=== PATIENT | male | born 1925 | race Caucasian/White ===

== ENCOUNTER 2016-08-25 13:08 | Inpatient (IN) ==
--- NOTE | 2016-08-25 13:24 | Emergency Department Note ---
Disposition Clinical Impression: Cerebrovascular accident, Frail elderly, Diabetes, Abnormal EKG, Hypertension, Polycythemia, CAD (coronary artery disease) Disposition: Admitted As Inpatient Referrals: David Whipple DO [Primary Care Provider] - Forms: ED Satisfaction Letter General Adult HPI - General Chief complaint: ED Neuro Symptoms/Deficit Stated complaint: Neuro Symptoms Time Seen by Provider: 08/25/16 13:18 Source: patient, EMS Limitations: no limitations - History of Present Illness HPI Narrative: 89-year-old male diabetic running from home via EMS. There is concern for strokelike symptoms including left facial droop and left upper and left lower extremity weakness which started sometime this morning. The patient was able to eat breakfast, then he was somewhat sleepy, one of his female relatives January he was sleeping in his chair at 845, she came back about 11:30 and noticed that he was still tired, about noon she was able to define some significant neurologic changes, it is unclear exactly when this started. There is no history of fall or trauma. There is no history of chest pain shortness of breath or abdominal pain no vomiting or diarrhea no bleeding. The patient is not known to take blood thinners apart from aspirin. The patient has no history of fever or back pain. He is known to be diabetic. His blood sugar on arrival here was in the 220s, EMS was unable to check at home secondary to a malfunctioning machine. The family reports the patient had a remote heart valve replaced, he is reportedly on Digoxin There is no history of syncope, no fever or cough. There is no history of bowel or bladder dysfunction or seizure. The patient is unable to clearly define when he had weakness. He had a remote ischemic intracerebral event but had no major defects afterwards. Onset (ago): hour(s) Pain Scale: 0 - Related Data Home Medications Medication Instructions Recorded Confirmed Atenolol [Tenormin] 25 mg PO DAILY 08/25/16 08/25/16 Carvedilol [Coreg] 6.25 mg PO BIDWM 08/25/16 08/25/16 Clopidogrel [Plavix] 75 mg PO DAILY 08/25/16 08/25/16 Digoxin [Lanoxin] 0.125 mg PO DAILY 08/25/16 08/25/16 Furosemide [Lasix] 40 mg PO DAILY 08/25/16 08/25/16 Gemfibrozil [Lopid] 600 mg PO BIDWM 08/25/16 08/25/16 GlipiZIDE [Glucotrol] 5 mg PO DAILY 08/25/16 08/25/16 Metformin [Glucophage] 500 mg PO HS 08/25/16 08/25/16 Potassium Chloride [K-Tab ER] 20 meq PO DAILY 08/25/16 08/25/16 Simvastatin [Zocor] 20 mg PO HS 08/25/16 08/25/16 Allergies Allergy/AdvReac Type Severity Reaction Status Date / Time Penicillins [PCN] Allergy See Verified 08/25/16 14:05 Comments All systems ED: reviewed and negative except as stated. Past Medical History - Past Medical History Medical history: Reports: coronary artery disease, CVA, diabetes, hypertension, myocardial infarction, other Psychiatric history: Reports: no psych history - Social History Smoking Status: Former smoker Smokeless Tobacco Status: No Alcohol use: Reports: none Drug use: Reports: none Physical Exam - General Limitations: no limitations General appearance: alert, in no apparent distress - Head Head exam: atraumatic, normocephalic, normal inspection - Eye Eye exam: Present: normal appearance, PERRL, EOMI. Absent: scleral icterus, conjunctival injection, miosis, mydriasis - ENT ENT exam: normal exam, normal oropharynx, mucous membranes moist, TM's normal bilaterally, normal external ear exam - Neck Neck exam: Present: normal inspection, full ROM, trachea midline. Absent: tenderness - Chest Chest inspection: Present: symmetric chest wall rise. Absent: tenderness - Respiratory Respiratory exam: Present: normal lung sounds bilaterally. Absent: respiratory distress - Cardiovascular Cardiovascular exam: Present: normal rhythm, tachycardia - Abdominal Exam Abdominal exam: Present: soft, Non-Tender, normal bowel sounds. Absent: tenderness, distention, guarding, rebound, rigidity - Extremities Exam Extremities exam: Present: normal inspection, full ROM, normal capillary refill. Absent: tenderness, pedal edema, joint swelling, calf tenderness - Expanded Lower Extremity Exam Neurovascular/Tendon exam: Absent: pulse deficit, motor deficit, sensory deficit , tendon deficit, extremity cold to touch - Back Exam Back exam: Present: normal inspection, full ROM. Absent: tenderness, CVA tenderness (R), CVA tenderness (L), vertebral tenderness - Neurological Exam Neurological exam: Present: alert, oriented X3, motor sensory deficit (Left upper and left lower extremity weakness versus right.). Absent: CN II-XII intact (Left facial droop noted) - Psychiatric Psychiatric exam: Present: normal affect, normal mood - Skin Skin exam: Present: warm, dry, intact, normal color. Absent: rash, cyanosis, diaphoresis, erythema, pallor, mottled Course Vital Signs Temperature 97.7 F 08/25/16 13:10 Pulse Rate 123 08/25/16 13:10 Respiratory Rate 16 08/25/16 13:10 Blood Pressure 119/74 08/25/16 13:10 O2 Sat by Pulse Oximetry 98 08/25/16 13:10 Temperature 97.7 F 08/25/16 13:10 Pulse Rate 79 08/25/16 13:34 Respiratory Rate 16 08/25/16 13:34 Blood Pressure 194/102 08/25/16 13:34 O2 Sat by Pulse Oximetry 97 08/25/16 13:43 Oxygen Delivery Oxygen Delivery Room Air Medical Decision Making - MDM Narrative Medical decision making narrative: We called a stroke alert and spoke with the [facility] neurologists Dr. Billings, Who reported tPA would not be indicated at this time. The patient cele has CT changes at this point. Aspirin was ordered. [facility] would be willing to accept the patient. I have consulted with our neurologist Dr. Hansen, who would also feel comfortable keeping the patient here at [facility]. I consulted with Dr. Hart band sawyer who looked at the EKGs and reports there is no significant change. The patient not having chest pain. His troponin is negative. I reviewed the case with the patient and family, they have elected to stay at [facility] for care. The patient appears to be generally stable. The digoxin level is pending. Aspirin was ordered. I consulted with the hospitalist on-call Dr. Villagran who has accepted the patient to his care. He patient's blood pressure did rise in the ED, labetalol was ordered. - Lab Data Lab results reviewed: Yes I reviewed the patient's lab results. Result diagrams: 08/25/16 13:33 08/25/16 13:33 Lab Results 08/25/16 08/25/16 08/25/16 Range/Units 13:33 13:33 13:33 WBC 13.3 H (4.3-11.1) K/mcL RBC 6.44 H (4.19-5.50) M/mcL Hgb 19.3 H (12.9-16.9) g/dL Hct 55.0 H (37.5-50.1) % MCV 85.4 (83.0-100.0) fL MCH 30.0 (28.0-33.3) pg MCHC 35.1 (31.6-35.5) g/dL RDW 14.1 (11.5-14.5) % Plt Count 123 L (140-400) K/mcL MPV 10.4 (9.4-12.4) fL Immature Gran % 0.3 (0-4) % Seg Neutrophils % 80.3 % Lymphocytes % 12.6 % Monocytes % 5.8 % Eosinophils % 0.5 % Basophils % 0.5 % Neutrophils # 10.7 H (1.6-8.9) K/mcL Lymphocytes # 1.7 (0.6-4.6) K/mcL Monocytes # 0.8 (0.0-1.3) K/mcL Eosinophils # 0.1 (0.0-0.6) K/mcL Basophils # 0.1 (0.0-0.2) K/mcL PT 13.5 H (9.4-12.1) Seconds INR 1.2 APTT 35.8 (26.0-36.0) Seconds Sodium 135 L (136-145) mEq/L Potassium 3.7 (3.5-4.5) mEq/L Chloride 104 (98-109) mEq/L Carbon Dioxide 21 (19-29) mEq/L BUN 13 (8-26) mg/dL Creatinine 0.88 (0.72-1.25) mg/dL Est GFR ( Amer) > 60 (> 60) Est GFR (Non-Af Amer) > 60 (> 60) BUN/Creatinine Ratio 15 (6-26) Glucose 232 H (70-99) mg/dL Calculated Osmolality 288 (280-300) Calcium 9.0 (8.6-10.8) mg/dL Creatine Kinase 46 (30-200) Units/L Troponin I (0-0.03) ng/mL 08/25/16 Range/Units 13:33 WBC (4.3-11.1) K/mcL RBC (4.19-5.50) M/mcL Hgb (12.9-16.9) g/dL Hct (37.5-50.1) % MCV (83.0-100.0) fL MCH (28.0-33.3) pg MCHC (31.6-35.5) g/dL RDW (11.5-14.5) % Plt Count (140-400) K/mcL MPV (9.4-12.4) fL Immature Gran % (0-4) % Seg Neutrophils % % Lymphocytes % % Monocytes % % Eosinophils % % Basophils % % Neutrophils # (1.6-8.9) K/mcL Lymphocytes # (0.6-4.6) K/mcL Monocytes # (0.0-1.3) K/mcL Eosinophils # (0.0-0.6) K/mcL Basophils # (0.0-0.2) K/mcL PT (9.4-12.1) Seconds INR APTT (26.0-36.0) Seconds Sodium (136-145) mEq/L Potassium (3.5-4.5) mEq/L Chloride (98-109) mEq/L Carbon Dioxide (19-29) mEq/L BUN (8-26) mg/dL Creatinine (0.72-1.25) mg/dL Est GFR ( Amer) (> 60) Est GFR (Non-Af Amer) (> 60) BUN/Creatinine Ratio (6-26) Glucose (70-99) mg/dL Calculated Osmolality (280-300) Calcium (8.6-10.8) mg/dL Creatine Kinase (30-200) Units/L Troponin I 0.03 (0-0.03) ng/mL - Radiology Data Radiology results reviewed: Yes I reviewed the patient's radiology results.
[2016-08-25 13:42] LABS: Basophils # 0.1 K/mcL (0.0-0.2); Basophils % 0.5 %; Eosinophils # 0.1 K/mcL (0.0-0.6); Eosinophils % 0.5 %; Hemoglobin 19.3 g/dL (12.9-16.9); Immature Granulocytes % 0.3 % (0-4); Lymphocytes # 1.7 K/mcL (0.6-4.6); Lymphocytes % 12.6 %; Mean Corpuscular HGB Conc 35.1 g/dL (31.6-35.5); Mean Corpuscular Volume 85.4 fL (83.0-100.0); Mean Platelet Volume 10.4 fL (9.4-12.4); Monocytes # 0.8 K/mcL (0.0-1.3); Monocytes % 5.8 %; Neutrophils # 10.7 K/mcL (1.6-8.9); Platelet Count 123 K/mcL (140-400); Red Blood Count 6.44 M/mcL (4.19-5.50); Red Cell Distribution Width 14.1 % (11.5-14.5); Segmented Neutrophils % 80.3 %
[2016-08-25] MEDS ORDERED: Aspirin 325 MG TABLET PO ONE (13:46)
[2016-08-25 13:48] LABS: INR 1.2; Prothrombin Time 13.5 Seconds (9.4-12.1)
[2016-08-25 13:51] LABS: Activated Partial Thrombo Time 35.8 Seconds (26.0-36.0)
[2016-08-25 13:56] LABS: BUN/Creatinine Ratio 15 (6-26); Blood Urea Nitrogen 13 mg/dL (8-26); Carbon Dioxide 21 mEq/L (19-29); Chloride 104 mEq/L (98-109); Creatine Kinase 46 Units/L (30-200); Glucose 232 mg/dL (70-99); Osmolality,Calculated 288 (280-300); Potassium 3.7 mEq/L (3.5-4.5); Sodium 135 mEq/L (136-145); eGFR For African Americans > 60 (> 60); eGFR For Non-African Americans > 60 (> 60)
[2016-08-25] MEDS ORDERED: *HR* Labetalol 20 MG/4 ML SYRINGE IVP ONE (15:46)
[2016-08-25] MEDS ORDERED: Ondansetron 4 MG/2 ML VIAL IVP PRN (18:47)
[2016-08-25] MEDS ORDERED: Naloxone 0.4 MG/ML INJ IVP PRN (18:47)
[2016-08-25] MEDS ORDERED: *HR* Dextrose 50 % in Water (Syg) 50 ML SYRINGE IVP PRN (19:22)
[2016-08-25] MEDS ORDERED: Dextrose Gel 15 GM PO PRN ×2 (19:22)
[2016-08-25] MEDS ORDERED: D5% in Water 1,000 ML IV PRN (19:22)
--- NOTE | 2016-08-25 20:00 | Neurology - Consult Note ---
Date of Encounter: 08/26/16 Time of Encounter: 19:59 Assessment and Plan (1) Acute CVA (cerebrovascular accident) Current Visit: Yes Status: Acute OVerall speaking this patient is an 89 years old man who developed acute onset of mental status along with some slurred speech, and possible head and neck preference to the right side, with possible neglect to the left side, without significant focal weakness. Does concern for new onset of stroke may be involving cortical area due to presence of head preference and posturing. So does need full stroke work up including MRI of brain, carotid artery duplex and echocardiography with saline bubble. Telemetry for cardiac dysarrhythmia. Agree with aspirin 81mg and plavix 75mg daily. Continue statin therapy. PT/OT/speech and swallow evaluation. medical and supportive care History of Present Illness Chief complaint: stroke like symptoms HPI: Mr. Borrego is a 89 year old male with PMH Significant for CAD, HTN, polycythemia, DM who developed acute onset of stroke like symptoms this morning. It was reported that the patient developed some weakness, and slurred speech. Patient can not tell much about his current symptoms but recognizes that he is doing better at the time of this interview. Grandson later came in and provided the history. Son relates that the patient developed some changes in the morning and that he had a stroke about 3-4 years ago where he developed weakness to the right side. But then he tells me that it was initially thought to be a stroke but later found no signs of stroke. Patient is somewhat having some may be baseline cognitive and he tends to neglect the left side of body and has some right sided gaze and head preference But able to squeeze left hand real hard when told so Past Med Surg Social Fam HX - Past Medical History Medical history: coronary artery disease, CVA, diabetes, hypertension, myocardial infarction, other Psychiatric history: no psych history - Social History Smoking Status: Former smoker Smokeless Tobacco Status: No Alcohol use: none Drug use: none Medications and Allergies Atenolol [Tenormin] 25 mg PO DAILY 08/25/16 [History] Carvedilol [Coreg] 6.25 mg PO BIDWM 08/25/16 [History] Clopidogrel [Plavix] 75 mg PO DAILY 08/25/16 [History] Digoxin [Lanoxin] 0.125 mg PO DAILY 08/25/16 [History] Furosemide [Lasix] 40 mg PO DAILY 08/25/16 [History] Gemfibrozil [Lopid] 600 mg PO BIDWM 08/25/16 [History] GlipiZIDE [Glucotrol] 5 mg PO DAILY 08/25/16 [History] Metformin [Glucophage] 500 mg PO HS 08/25/16 [History] Potassium Chloride [K-Tab ER] 20 meq PO DAILY 08/25/16 [History] Simvastatin [Zocor] 20 mg PO HS 08/25/16 [History] Allergies Penicillins [PCN] Allergy (Verified 08/25/16 14:05) See Comments All Systems: A 10-system review of systems was performed and is negative for pertinent findings except as documented above in the HPI. Physical Examination - Vital Signs Vital Signs: Initial Vital Signs Temp Pulse Resp BP Pulse Ox 97.7 F 123 16 119/74 98 08/25/16 13:10 08/25/16 13:10 08/25/16 13:10 08/25/16 13:10 08/25/16 13:10 - Constitutional General appearance: comfortable (Denies significant discomforts. Does not seem to be in any acute distress) - Neurologic Sensorimotor examination: other (Difficult to assess due to mental status changes) Detailed motor examination: other (Seem to neglect left side but able to squeeze hand rather when told so. Upward drift to right arm noted. Able to lift legs off the bed bilaterally) Reflexes: Biceps: 1+, Triceps: 1+, Brachioradialis: 1+, Patella: 1+, Achilles: 1 + Mental Status Examination: awake, alert, oriented to person, follows commands appropriately, lethargic (Patient answers simple qeustions only and is drowsy but easily arousable. Turns head to the right side, but no significant gaze preference seen), opens eyes to voice, opens eyes to noxious stimulation, follows simple commands Cranial nerve examination: PERRL, EOMI, corneal reflexes brisk symmetrically, sensory to face intact, mastication intact, no facial asymmetry is present, gag reflex intact, tongue protrudes midline Results - Laboratory Findings CBC and BMP: 08/26/16 00:52 08/26/16 00:52 Abnormal lab findings: Abnormal lab results WBC 13.3 K/mcL (4.3-11.1) H 08/25/16 13:33 RBC 6.44 M/mcL (4.19-5.50) H 08/25/16 13:33 Hgb 19.3 g/dL (12.9-16.9) H 08/25/16 13:33 Hct 55.0 % (37.5-50.1) H 08/25/16 13:33 Plt Count 123 K/mcL (140-400) L 08/25/16 13:33 Neutrophils # 10.7 K/mcL (1.6-8.9) H 08/25/16 13:33 PT 13.5 Seconds (9.4-12.1) H 08/25/16 13:33 Sodium 135 mEq/L (136-145) L 08/25/16 13:33 Glucose 232 mg/dL (70-99) H 08/25/16 13:33 Digoxin < 0.3 ng/mL (0.8-2.0) L 08/25/16 13:33 Consult Discharge Plan - Plan Referrals: David Whipple DO [Primary Care Provider] -
--- NOTE | 2016-08-25 20:26 | Internal Med History&Physical ---
Date of Encounter: 08/25/16 Time of Encounter: 18:00 Assessment and Plan (1) Diabetes mellitus type 2, noninsulin dependent Current visit: Yes Status: Acute Insulin sliding scale. Continue his oral meds. (2) Hyperlipidemia Current visit: Yes Status: Acute Check lipid panel. Continue with gemfibrozil. I will stop the simvastatin and start atorvastatin instead. Qualifiers: Hyperlipidemia type: unspecified Qualified Code(s): E78.5 - Hyperlipidemia , unspecified (3) Essential hypertension Current visit: Yes Status: Acute He is on 2 beta blockers. I will continue with atenolol. Stop Coreg. (4) DVT prophylaxis Current visit: Yes Status: Acute Lovenox. (5) Frail elderly Current visit: Yes Status: Acute (6) Acute ischemic right MCA stroke Current visit: Yes Status: Acute Continue Plavix. Add aspirin low-dose. Neurology consult. Check MRI and MRA of the brain. Carotid Dopplers. Telemetry. DVT prophylaxis with Lovenox. PT OT evaluation. Speech therapy evaluation. He has a very high risk for morbidity mortality and complications due to acute and severe change in mental status secondary to stroke. Internal Medicine - H&P: HPI Chief complaint: Altered mental status Admitted From: Emergency Dept Plans for Post Hospital Care: Home History of present illness: Mr. Borrego is a 89 year old male with past medical history significant for hypertension diabetes TIA and cardiac valvular disease was brought to the hospital for altered mental status. He is currently confused and cannot provide any history per family member at the bedside around 9:30 she was noted to be slumped over in his chair and appeared to be confused and had a left- sided facial droop and could not use his left arm. He was brought to the hospital where he was evaluated in the emergency department by the [facility] tele- neurologist and was deemed not a candidate for TPA. He was referred for admission to our hospital. Past medical history as above Past surgical history valve replacement with bioprosthetic valve Review of systems and family history could not be obtained from the patient due to altered mental status. He has a remote history of smoking no alcohol or drug use. Past Med Surg Social Fam HX - Past Medical History Medical history: coronary artery disease, CVA, diabetes, hypertension, myocardial infarction, other Psychiatric history: no psych history - Social History Smoking Status: Former smoker Smokeless Tobacco Status: No Alcohol use: none Drug use: none Internal Medicine - H&P: Meds Atenolol [Tenormin] 25 mg PO DAILY 08/25/16 [History] Carvedilol [Coreg] 6.25 mg PO BIDWM 08/25/16 [History] Clopidogrel [Plavix] 75 mg PO DAILY 08/25/16 [History] Digoxin [Lanoxin] 0.125 mg PO DAILY 08/25/16 [History] Furosemide [Lasix] 40 mg PO DAILY 08/25/16 [History] Gemfibrozil [Lopid] 600 mg PO BIDWM 08/25/16 [History] GlipiZIDE [Glucotrol] 5 mg PO DAILY 08/25/16 [History] Metformin [Glucophage] 500 mg PO HS 08/25/16 [History] Potassium Chloride [K-Tab ER] 20 meq PO DAILY 08/25/16 [History] Simvastatin [Zocor] 20 mg PO HS 08/25/16 [History] Allergies Penicillins [PCN] Allergy (Verified 08/25/16 14:05) See Comments All Systems PM: A 10-system review of systems was performed and is negative for pertinent findings except as documented above in the HPI. - Constitutional Vitals: Temp Pulse Resp BP Pulse Ox 97.9 F 60 16 150/88 98 08/25/16 17:47 08/25/16 18:11 08/25/16 18:11 08/25/16 18:11 08/25/16 17:47 General appearance: Present: A&O X 1 - Respiratory Respiratory exam: Present: CTAB. Absent: accessory muscle use, rales, rhonchi, wheezes - Cardiovascular Cardiovascular exam: Present: RRR, +S1, +S2. Absent: diastolic murmur, gallop, rubs, systolic murmur - GI/Abdominal GI/Abdominal exam: Present: normal bowel sounds, soft, no peritoneal signs. Absent: distended, tenderness - Extremities Exam Extremities exam: Present: warm, radial pulses palpable and symetrical. Absent : calf tenderness, cyanotic, pedal edema - Neurological Exam Additional comments: Right deviated gaze, pupils equal round and reactive to light, Left facial droop , left-sided weakness in both upper and lower extremity, DTRs are symmetrical bilaterally, - Skin Skin exam: Present: dry, intact Internal Med - H&P Results - Labs CBC & Chem 7: 08/25/16 13:33 08/25/16 13:33 Labs: Cardiac Enzymes 08/25/16 Range/Units 19:24 Troponin I 0.04 H* (0-0.03) ng/mL - EKG Data -: EKG Interpreted by Myself EKG shows normal: sinus rhythm (Left bundle branch block.)
[2016-08-25] MEDS: Pantoprazole 40 MG VIAL IVP SCH (23:57)
[2016-08-26] MEDS: 0.9 % Sodium Chloride 1,000 ML IVC SCH ×2 (00:48→12:46)
[2016-08-26 01:12] LABS: Basophils % 0.3 %; Eosinophils % 0.2 %; Hemoglobin 18.8 g/dL (12.9-16.9); Immature Granulocytes % 0.4 % (0-4); Lymphocytes # 1.8 K/mcL (0.6-4.6); Lymphocytes % 13.1 %; Mean Corpuscular HGB Conc 33.4 g/dL (31.6-35.5); Mean Corpuscular Hemoglobin 28.6 pg (28.0-33.3); Mean Corpuscular Volume 85.7 fL (83.0-100.0); Mean Platelet Volume 10.4 fL (9.4-12.4); Monocytes # 0.9 K/mcL (0.0-1.3); Monocytes % 6.7 %; Platelet Count 137 K/mcL (140-400); Red Blood Count 6.57 M/mcL (4.19-5.50); Red Cell Distribution Width 13.3 % (11.5-14.5); Segmented Neutrophils % 79.3 %
[2016-08-26 01:26] LABS: Hematocrit 56.3 % (37.5-50.1)
[2016-08-26 01:27] LABS: BUN/Creatinine Ratio 15 (6-26); Blood Urea Nitrogen 13 mg/dL (8-26); Calcium 9.1 mg/dL (8.6-10.8); Carbon Dioxide 26 mEq/L (19-29); Chloride 102 mEq/L (98-109); Cholesterol 170 mg/dL (< 200); Glucose 217 mg/dL (70-99); HDL Cholesterol 43 mg/dL (40-59); LDL Cholesterol,Calculated 108 mg/dL (0-99); Magnesium 1.7 mg/dL (1.6-2.6); Osmolality,Calculated 293 (280-300); Potassium 3.5 mEq/L (3.5-4.5); Sodium 138 mEq/L (136-145); Triglycerides 94 mg/dL (< 150); eGFR For African Americans > 60 (> 60); eGFR For Non-African Americans > 60 (> 60)
[2016-08-26] MEDS: *HR* Enoxaparin 40 MG/0.4 ML SYRINGE SQ SCH (05:02)
[2016-08-26 05:47] LABS: Bilirubin,Urine Negative (Negative); Blood,Urine Trace (Negative); Clarity,Urine Clear (Clear); Color,Urine Yellow (Yellow); Glucose,Urine (UA) 500 mg/dL (Normal); Ketones,Urine Trace mg/dL (Negative); Leukocyte Esterase,Urine Negative (Negative); Nitrite,Urine Negative (Negative); PH,Urine 6.5 pH Units (5.0-8.0); Protein,Urine 100 mg/dL (Neg-Trace); Specific Gravity,Urine 1.019 (1.010-1.025); Urobilinogen,Urine Normal (Normal)
[2016-08-26 05:50] LABS: Bacteria,Urine None Seen per hpf (None-Few); Hyaline Casts,Urine None Seen per lpf (None-Few); Squamous Epithelial Cell,Urine Moderate per lpf (None-Few); WBC,Urine 0-3 per hpf (0-3)
--- NOTE | 2016-08-26 08:38 | Internal Med Progress Note ---
Date of Encounter: 08/26/16 Time of Encounter: 08:36 - Assessment and plan (1) Acute CVA (cerebrovascular accident) Current Visit: Yes Status: Acute Assessment and plan: admitted with new onset of left-sided weakness and altered mental status. MRI brain shows acute infarct in right basal ganglia along with multiple lacunar infarcts in right frontal and left occipitotemporal areas. Neurology consult noted; Echocardiogram shows no e/o atrial or ventricular thrombus. Continue ASA and Plavix along with statin. Check lipid profile and HbA1C. Allow permissive HTN and use IV Hydralazine PRN for appropriate control, <180/120. PT/OT consults pending. Speech therapy evaluation completed, recommend soft diet with nectar thick liquids; (2) CAD (coronary artery disease) Current Visit: Yes Status: Chronic Qualifiers: Coronary Disease-Associated Artery/Lesion type: [place] artery [place] vs. transplanted heart: [place] heart Associated angina: without angina Qualified Code(s): I25.10 - Atherosclerotic heart disease of [place] coronary artery without angina pectoris (3) Diabetes mellitus type 2, noninsulin dependent Current Visit: Yes Status: Chronic Assessment and plan: Accucheck blood glucose monitoring with sliding scale insulin as needed. Check HbA1C; consistent carbohydrate diet. (4) Essential hypertension Current Visit: Yes Status: Chronic (5) Hyperlipidemia Current Visit: Yes Status: Chronic Qualifiers: Hyperlipidemia type: unspecified Qualified Code(s): E78.5 - Hyperlipidemia , unspecified (6) CHF (congestive heart failure) Current Visit: Yes Status: Chronic Assessment and plan: does not appear to be in acute exacerbation. Echocardiogram shows moderately decreased EF around 45%, moderate concentric LVH, mild LV diastolic dysfunction , mild-moderate MR, AVR; continue Lasix; Qualifiers: Congestive heart failure type: combined Congestive heart failure chronicity : chronic Qualified Code(s): I50.42 - Chronic combined systolic (congestive) and diastolic (congestive) heart failure - Subjective Interval history: Able to answer that he is okay; drowsy but arousable; able to move his left arm and leg, although weak; plan of care d/w [id number] at bedside; - Constitutional Vitals: Temp Pulse Resp BP Pulse Ox 97.9 F 64 17 167/112 95 08/26/16 06:56 08/26/16 06:56 08/26/16 06:56 08/26/16 06:56 08/26/16 06:56 General appearance: Present: A&O X 1 - Neck Neck exam general surgery: Present: supple, trachea midline. Absent: lymphadenopathy - Respiratory Respiratory exam: Present: CTAB. Absent: accessory muscle use, rales, rhonchi, wheezes - Cardiovascular Cardiovascular exam: Present: bradycardia, RRR, +S1, +S2. Absent: diastolic murmur, gallop, rubs, systolic murmur - GI/Abdominal GI/Abdominal exam: Present: normal bowel sounds, soft, no peritoneal signs. Absent: distended, tenderness - Extremities Exam Extremities exam: Present: warm, radial pulses palpable and symetrical. Absent : calf tenderness, cyanotic, pedal edema - Neurological Exam Neurological exam: Present: no focal deficits, strengths equal and symetr throughout (4/5 motor power in left UE and LE). Absent: pronater drift, facial droop, speech deficit Internal Medicine: Result - Labs CBC & Chem 7: 08/26/16 00:52 08/26/16 00:52 Labs: Short CBC 08/26/16 Range/Units 00:52 WBC 13.9 H (4.3-11.1) K/mcL Hgb 18.8 H (12.9-16.9) g/dL Hct 56.3 H (37.5-50.1) % Plt Count 137 L (140-400) K/mcL Neutrophils # 11.0 H (1.6-8.9) K/mcL BMP 08/26/16 00:52 Sodium 138 Potassium 3.5 Chloride 102 Carbon Dioxide 26 BUN 13 Creatinine 0.88 Glucose 217 H Calcium 9.1 Cardiac Enzymes 08/25/16 08/26/16 Range/Units 19:24 00:52 Troponin I 0.04 H* 0.03 (0-0.03) ng/mL Urine 08/26/16 Range/Units 05:20 Urine Color Yellow (Yellow) Urine Clarity Clear (Clear) Urine pH 6.5 (5.0-8.0) pH Units Ur Specific [place] 1.019 (1.010-1.025) Urine Protein 100 H (Neg-Trace) mg/dL Urine Glucose (UA) 500 H (Normal) mg/dL - ABG Interpretation ABG results: PT/INR, D-dimer PT 13.5 Seconds (9.4-12.1) H 08/25/16 13:33 - Impressions Impressions Head MRA 08/25/16 18:53 IMPRESSION: Acute infarcts within the right basal ganglia with additional lacunar infarcts seen within the right frontal lobe and left occipitotemporal lobe. 4 mm right MCA bifurcation aneurysm. The findings were sent to the Radiology Results Communication Center at 8:55 pm on 08/25/2016to be communicated to a licensed caregiver. D/ / Cornel Good MD / Cornel Good MD Interpreting Provider: Cornel Good MD Brain MRI 08/25/16 18:54 IMPRESSION: Acute infarcts within the right basal ganglia with additional lacunar infarcts seen within the right frontal lobe and left occipitotemporal lobe. 4 mm right MCA bifurcation aneurysm. The findings were sent to the Radiology Results Communication Center at 8:55 pm on 08/25/2016to be communicated to a licensed caregiver. D/ / Cornel Good MD / Cornel Good MD Interpreting Provider: Cornel Good MD Consult Discharge Plan - Plan Referrals: David Whipple DO [Primary Care Provider] - 09/05/16 1:30 pm
[2016-08-26] MEDS ORDERED: *HR* GlipiZIDE 5 MG TABLET PO SCH (09:00)
[2016-08-26] MEDS: *HR* Digoxin 0.125 MG TABLET PO SCH (09:40)
[2016-08-26] MEDS: Aspirin 81 MG TAB.CHEW PO SCH (09:41)
[2016-08-26] MEDS: Pantoprazole 40 MG VIAL IVP SCH (09:41)
[2016-08-26] MEDS: Furosemide 40 MG TABLET PO SCH (09:41)
--- NOTE | 2016-08-26 12:07 | ECHO - Doppler Report ---
Echo with Saline Contrast Name: Miguelito Borrego Date of Study: 08/26/2016 Date: 1925 Ht: 72.0 in Medical Record#: [id number] Age: 89 Wt: 199.0 lb Gender: Male BSA: 2.13 Order #: [id number] Location: [facility] Room #: 2NE17 Reading Physician: Jayne Haider DO Edger Machine Setter: Maverick Pennington RN Ordering Physician: Simona Mark MD Primary Physician: David Whipple DO Indications: Cerebrovascular Accident Impressions: LVEF 45%. Mild global and segmental LV systolic abnormality. Moderate concentric hypertrophy of the left ventricle. There is evidence of mild diastolic dysfunction of the left ventricle. RV is not well evaluated. S/p TAVR. Normal prosthetic aortic gradient, 13 mmHg. Mild-moderate mitral regurgitation. No pulmonary hypertension. There is no evidence of a PFO with agitated saline contrast. Left Ventricular Wall Motion: Rest Echo Findings The mid inferior, basal inferior, mid inferior septal, basal inferior septal, mid anterior septal, mid inferior lateral, basal anterior septal and basal inferior lateral toribio were hypokinetic. All other wall segments showed normal motion. Findings: Study Quality * Technically adequate exam. ECG Findings * Sinus bradycardia. Aortic Valve * No aortic regurgitation. * Prosthetic aortic valve not well visualized. * No aortic stenosis. Mitral Valve * Moderate mitral annular calcification * Mildly calcified mitral valve leaflets. * Mild-moderate mitral regurgitation. * No mitral stenosis. * Mildly thickened mitral valve leaflets. Left Ventricle * Moderate concentric left ventricular hypertrophy. * Mild left ventricular diastolic dysfunction. * LVEF 45%. Tricuspid Valve * Tricuspid valve not well visualized. * Trace tricuspid regurgitation. * Estimated RA pressure is 3 mmHg. * Estimated RVSP is 30 mmHg. * No pulmonary hypertension. Pulmonic Valve * Pulmonic valve is not well visualized. * No pulmonic stenosis. * No pulmonic regurgitation. Pulmonary Artery * Pulmonary artery not well visualized. Right Atrium * Normal right atrial size. Left Atrium * Severely dilated left atrium. Interatrial Septum * No evidence of PFO by color Doppler. * No evidence of PFO with agitated saline contrast. IVC * Normal IVC dimensions and inspiratory collapse. Pericardium * There is no pericardial effusion present. Right Ventricle * Not well visualized. Aorta * Normally sized aortic root. History Hypertension Diabetes Hypercholesteremia Family History of CAD History of CAD/PTCA Myocardial Infarction Coronary Artery Bypass Graft Valvular Disease 05/17/2014 a Previous Echo was performed. Contrast: Agitated saline 20 ml. Measurements: BP: 167/ 112 2D Normal Values IVSd: 1.50 cm 0.6 - 1.0 cm LVIDd: 4.90 cm 3.7 - 5.6 cm LVPWd: 1.50 cm 0.6 - 1.1 cm LVIDs: 3.90 cm 1.5 - 3.6 cm LA: 4.00 cm 2.0 - 4.0cm %FS: 20.40 cm >25 % LVOT Diam: 1.80 cm LA volume: 169 Mitral Valve Peak Velocity 1.32 m/sec Mean Velocity:.66 m/sec Peak Grad:7.00 mmHg Mean Grad:2.00 mmHg Valve Area:1.68 cm2 Peak E:.91 m/sec Peak A:1.12 m/sec E/A Ratio:0.8 Peak E' Lat Jason:7.51 cm/s Peak E' Med Jason:4.19 cm/s E/E' Lat Ratio:12.2 E/E' Med Ratio:21.8 LVOT Peak Jason:1.46 m/sec Mean Jason:.97 m/sec Peak Grad:9.00 mmHg Mean Grad:4.00 mmHg Aortic Valve Peak Jason:2.55 m/sec Mean Jason:1.75 m/sec Peak Grad:26.00 mmHg Mean Grad:13.00 mmHg Valve Area:1.35 cm2 Tricuspid Valve TV Regurg Peak Grad: 27.00mmHg TV Regurg Peak Jason: 2.59m/sec Updated by Jayne Haider on 08/26/2016 12:00:59 PM electronically signed on 08/26/2016 12:01:55 PM with status of Final Wall Motion Cole: 1=Normal, 2=Hypokinesis, 3=Akinesis, 4=Dyskinesis, 5=Aneurysmal, 6=Hyperkinetic, X=Not Visualized (Blank)=Missing
--- NOTE | 2016-08-26 14:42 | Neurology Progress Note ---
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 it is my recommendation that the patient probably needs more aggressive treatment than the combination of aspirin and plavix. Will consider anticoagulation therapy with coumadin if no contraindication exists. Prior to initiation of anticoagulation therapy will consult cardiology and will also obtain SHASHA looking for atrial appendage thrombus formation. Neurologically, since the sizes of stroke are small, except the one involving right BG, his neurological status should improve but left sided mild weakness may remain persistent. Please continue medical and supportive care Subjective Principal diagnosis: CVA Interval history: Patient seen and examined. He has been feeling fine and no specific discomforts. Language appears intact and still has some left sided neglect but hand printing services coordinator appears strong. Echocardiagrphy showed LVEF 45%, with evidence of hypokinesis in multiple areas. No evidence of PFO noted. Discussed with his son, who reported that the patient was on coumadin about 2 years ago before the patient underwent mitral valve replacement. After the valve replacement he was doing really well and has not been on any anticoagulation therapy. Objective - Constitutional Vitals: Temp Pulse Resp BP Pulse Ox 97.6 F 55 17 135/81 95 08/26/16 11:48 08/26/16 11:48 08/26/16 11:48 08/26/16 11:48 08/26/16 11:48 - Neurological Exam Sensorimotor examination: Present: other (Difficult to assess due to mental status changes) Motor Examination: Present: other (Seem to neglect left side but able to squeeze hand rather when told so. Upward drift to right arm noted. Able to lift legs off the bed bilaterally) Mental Status Examination: Present: awake, alert, oriented to person, follows commands appropriately, lethargic (Patient answers simple qeustions only and is drowsy but easily arousable. Turns head to the right side, but no significant gaze preference seen), opens eyes to voice, opens eyes to noxious stimulation, follows simple commands Cranial nerve examination: Present: PERRL, EOMI, corneal reflexes brisk symmetrically, sensory to face intact, mastication intact, no facial asymmetry is present, gag reflex intact, tongue protrudes midline Results - Laboratory Findings CBC and BMP: 08/26/16 00:52 08/26/16 00:52 Abnormal lab findings: Abnormal lab results WBC 13.9 K/mcL (4.3-11.1) H 08/26/16 00:52 RBC 6.57 M/mcL (4.19-5.50) H 08/26/16 00:52 Hgb 18.8 g/dL (12.9-16.9) H 08/26/16 00:52 Hct 56.3 % (37.5-50.1) H 08/26/16 00:52 Plt Count 137 K/mcL (140-400) L 08/26/16 00:52 Neutrophils # 11.0 K/mcL (1.6-8.9) H 08/26/16 00:52 PT 13.5 Seconds (9.4-12.1) H 08/25/16 13:33 Glucose 217 mg/dL (70-99) H 08/26/16 00:52 POC Glucose 176 (58-89) H 08/26/16 07:01 LDL Cholesterol, Calc 108 mg/dL (0-99) H 08/26/16 00:52 Urine Protein 100 mg/dL (Neg-Trace) H 08/26/16 05:20 Urine Glucose (UA) 500 mg/dL (Normal) H 08/26/16 05:20 Urine Ketones Trace mg/dL (Negative) H 08/26/16 05:20 Urine Blood Trace (Negative) H 08/26/16 05:20 Urine Microscopic RBC 3-5 per hpf (0-3) H 08/26/16 05:20 Ur Squamous Epith Cells Moderate per lpf (None-Few) H 08/26/16 05:20 Digoxin < 0.3 ng/mL (0.8-2.0) L 08/25/16 13:33 Consult Discharge Plan - Plan Referrals: David Whipple DO [Primary Care Provider] - 09/05/16 1:30 pm
--- NOTE | 2016-08-26 14:53 | Cardiology Consult Note ---
Date of Encounter: 08/26/16 Time of Encounter: 14:50 Assessment and Plan (1) Acute CVA (cerebrovascular accident) Current Visit: Yes Status: Acute Coumadin therapy recommended by neurology d/t concern for embolic stroke. Coumadin therapy is reasonable in the setting of recurrent CVA with concern for embolic etiology. Recommend stopping plavix. No history of atrial fibrillation on review of records. Pt seen by cardiology previously. TTE- EF 45% (45-50% on previous TTE 2013). Global and segmental LV wall motion abnormalities. Moderate concenteric LVH. Mild diastolic dysfunction. S/p TAVR with normal prosthetic aortic gradient at 13 mmHg. Mild to moderate MR. No evidence of PFO. Telemetry review shows no definite signs of atrial fibrillation. SR with LBBB seen. Occasional PAC. Occasional junctional beats. Plan: Agree coumadin therapy is reasonable for CVA prevention . Would hold plavix if starting coumadin. SHASHA to assess for thrombus. We will discuss loop recorder with EP. (2) CAD (coronary artery disease) Current Visit: No Status: Chronic H/o 5V CABG remotely. Asa, statin, and bb. Qualifiers: Coronary Disease-Associated Artery/Lesion type: [place] artery [place] vs. transplanted heart: [place] heart Associated angina: without angina Qualified Code(s): I25.10 - Atherosclerotic heart disease of [place] coronary artery without angina pectoris (3) S/P TAVR (transcatheter aortic valve replacement) Current Visit: Yes Status: Acute H/o TAVR in 2013. TTE shows normal prosthetic aortic valve gradient. Discussion w patient/family: The assessment and plan as outlined above was discussed with the patient and/or family members who expressed understanding and agreement. All questions were answered. Thank you for involving us in the care of your patient. Please call with any questions. History of Present Illness Consult date: 08/26/16 Consult reason: CVA, afib work-up Chief complaint: SOB History of present illness: Mr. Borrego is a 89 year old male with history of 5V CABG, TAVR in 2013, hypertension, HLD, diabetes type II, and previous CVA. He presented from home with AMS. He was found slumped over in his recliner and had a left facial droop and weakness in left arm. MRI showed acute infarcts in the right basal ganglia with additional lacunar infarcts in the right frontal and left occipital and temporal lobes. Cardiology called by neurology for concern of embolic stroke. On my exam pt is alert and oriented. Poor historian. Denies history of atrial fibrillation. No diagnosis of atrial fibrillation seen in past records. He denies palpitations. Denies chest pain. Past Med Surg Social Fam HX - Past Medical History Medical history: coronary artery disease, CVA, diabetes, hyperlipidemia, hypertension, myocardial infarction, other Psychiatric history: no psych history - Social History Smoking Status: Former smoker Smokeless Tobacco Status: No Alcohol use: none Drug use: none Medications and Allergies Atenolol [Tenormin] 25 mg PO DAILY 08/25/16 [History] Carvedilol [Coreg] 6.25 mg PO BIDWM 08/25/16 [History] Clopidogrel [Plavix] 75 mg PO DAILY 08/25/16 [History] Digoxin [Lanoxin] 0.125 mg PO DAILY 08/25/16 [History] Furosemide [Lasix] 40 mg PO DAILY 08/25/16 [History] Gemfibrozil [Lopid] 600 mg PO BIDWM 08/25/16 [History] GlipiZIDE [Glucotrol] 5 mg PO DAILY 08/25/16 [History] Metformin [Glucophage] 500 mg PO HS 08/25/16 [History] Potassium Chloride [K-Tab ER] 20 meq PO DAILY 08/25/16 [History] Simvastatin [Zocor] 20 mg PO HS 08/25/16 [History] Allergies Penicillins [PCN] Allergy (Verified 08/25/16 14:05) See Comments All Systems Review: A 10-system review of systems was performed and is negative for pertinent findings except as documented above in the HPI. Physical Examination Vital Signs Temp Pulse Resp BP Pulse Ox 08/26/16 11:48 97.6 F 55 17 135/81 95 08/26/16 10:10 97.9 F 64 16 167/112 08/26/16 06:56 97.9 F 64 17 167/112 95 08/26/16 06:16 96 08/26/16 06:10 66 08/26/16 03:19 98.1 F 76 21 173/84 96 08/26/16 02:10 63 178/88 08/25/16 23:50 97.9 F 84 24 191/102 98 08/25/16 22:10 98 02/27/17 18:11 60 16 150/88 08/25/16 17:47 97.9 F 52 16 150/88 98 08/25/16 17:06 17 158/97 08/25/16 16:57 65 17 138/66 97 08/25/16 16:00 65 17 179/94 97 08/25/16 15:45 64 178/96 Intake and Output 08/25/16 08/26/16 08/26/16 23:59 07:59 15:59 Intake Total 0 / 0 0 / 0 1000 / 1000 Output Total 0 / 0 0 / 0 0 / 0 Balance 0 / 0 0 / 0 1000 / 1000 Intake: IV Fluids 1000 / 1000 0.9 % Sodium Chloride 1, 1000 / 1000 000 ML @ 100 mls/hr IVC . Q10H STACEY Rx#:[id number] Oral 0 / 0 0 / 0 0 / 0 Output: Urine 0 / 0 0 / 0 0 / 0 Other: Meal Dinner Lunch Percent of Meal Consumed 0% 100% # Urine Diapers 1 3 Blood Glucose* 189 176 130 General: Conversant, No Apparent Distress HEENT: Atraumatic, Normocephaly, Mucus Membranes Moist, Other (left facial droop ) Neck: No JVD, Normal carotid pulses Cardiac: Reg Rate and Rhythm, Normal S1 and S2, No Murmur Lungs: Normal Breath Sounds, No Wheeze, Rales, Rhonchi Neuro: Alert and responsive, Other (left sided weakness noted. keeps eyes closed during discussion. ) Abdomen: Soft, Non-Tender Skin: No rashes noted on visualized skin Musculoskeletal: No Chest Wall Tenderness Extremities: No Clubbing, No Cyanosis, No Edema, Normal Pulses Results 08/26/16 00:52 08/26/16 00:52 - Imaging and Cardiology Echo: report reviewed - EKG Interpretation EKG results cardiology: personally reviewed (SR with RAY) Consult Discharge Plan - Plan Referrals: David Whipple DO [Primary Care Provider] - 09/05/16 1:30 pm
--- NOTE | 2016-08-26 16:17 | Electrocardiograph Report ---
[place] [address] Test Date: 2016-08-25 Pat Name: Miguelito Borrego Department: 103 Room: 2NE17 Gender: M Mri Ct Tech: : 1925 Requested By: Simona Mark Order Number: [id number] Reading MD: Caleb Mcclain Measurements Intervals [place] Rate: 79 P: 72 MA: 193 QRS: 8 QRSD: 170 T: 148 QT: 446 QTc: 480 Interpretive Statements SINUS RHYTHM LEFT BUNDLE BRANCH BLOCK Electronically Signed On 08-26-2016 16:15:51 EST by Caleb Mcclain
[2016-08-26] MEDS ORDERED: Albuterol 2.5 MG/3 ML NEBULIZER IH PRN (21:56)
[2016-08-26] MEDS ORDERED: Nitroglycerin 0.4 MG TAB.SUBL SL PRN (21:57)
[2016-08-26] MEDS ORDERED: Bumetanide 1 MG/4 ML VIAL IVP ONE (21:57)
[2016-08-26] MEDS: Ipratropium/Albuterol Neb 3 ML IH SCH (22:21)
[2016-08-26 23:05] LABS: VBG HCO3 21.3 mEq/L (21-27); VBG PH 7.49 pH Units (7.32-7.42)
[2016-08-27] MEDS ORDERED: Bumetanide 1 MG/4 ML VIAL IVP STA (03:04)
[2016-08-27] MEDS ORDERED: Acetaminophen 650 MG RECTAL SUPP RC PRN (03:07)
[2016-08-27] MEDS ORDERED: Benzonatate 100 MG CAPSULE PO PRN (03:10)
[2016-08-27] MEDS: Ipratropium/Albuterol Neb 3 ML IH SCH ×4 (03:58→22:33)
[2016-08-27] MEDS ORDERED: Vancomycin 1,250 MG in D5% in Water 250 ML IVPB SCH (04:00)
[2016-08-27] MEDS ORDERED: Vancomycin 1,500 MG in D5% in Water 250 ML IVPB SCH (04:00)
[2016-08-27] MEDS: Levofloxacin 500 MG/100 ML 500 MG/100 ML BAG IVPB SCH (04:12)
[2016-08-27] MEDS: *HR* Enoxaparin 40 MG/0.4 ML SYRINGE SQ SCH (05:39)
[2016-08-27 06:08] LABS: Basophils % 0.2 %
[2016-08-27 06:09] LABS: Basophils # 0.1 K/mcL (0.0-0.2); Hemoglobin 19.5 g/dL (12.9-16.9); Immature Granulocytes % 1.3 % (0-4); Lymphocytes # 1.2 K/mcL (0.6-4.6); Lymphocytes % 4.2 %; Mean Corpuscular Hemoglobin 29.9 pg (28.0-33.3); Mean Corpuscular Volume 85.4 fL (83.0-100.0); Mean Platelet Volume 11.2 fL (9.4-12.4); Monocytes # 1.8 K/mcL (0.0-1.3); Monocytes % 6.4 %; Platelet Count 127 K/mcL (140-400); Red Blood Count 6.52 M/mcL (4.19-5.50); Red Cell Distribution Width 14.6 % (11.5-14.5); Segmented Neutrophils % 87.9 %; VBG HCO3 21.9 mEq/L (21-27); VBG PH 7.43 pH Units (7.32-7.42)
[2016-08-27 06:11] LABS: Hematocrit 55.7 % (37.5-50.1); Neutrophils # 24.9 K/mcL (1.6-8.9)
[2016-08-27 06:35] LABS: BUN/Creatinine Ratio 17 (6-26); Blood Urea Nitrogen 19 mg/dL (8-26); Calcium 8.5 mg/dL (8.6-10.8); Carbon Dioxide 20 mEq/L (19-29); Chloride 102 mEq/L (98-109); Glucose 379 mg/dL (70-99); Osmolality,Calculated 298 (280-300); Potassium 3.1 mEq/L (3.5-4.5); Sodium 135 mEq/L (136-145); eGFR For African Americans > 60 (> 60); eGFR For Non-African Americans > 60 (> 60)
[2016-08-27 06:45] LABS: Platelet Estimate Slight Decrease (Normal); Reactive Lymphocytes Present (Not Present)
--- NOTE | 2016-08-27 07:29 | Carotid Imaging Report ---
Carotid Duplex Patient Name:Miguelito Borrego Order Number:[id number] Procedure Date:08/26/2016 Date:1925ge:89 yrs Gender:Male Location:[facility] Room #: 2NE17 Spring Floor Service Worker:Maverick Pennington RN Referring MD:Reagan Villagran MD crude oil driver:David Whipple DO Reading MD:Saud Chacon MD Primary Indications:Cerebral Vascular Accident Risk Factors Yes/No Hypertension Yes Diabetes Yes Hypercholesterolemia Yes Smoker Previous Yes Hx of TIA Yes Hx of CVA Yes Hx of CAD/PTCA Yes Impressions: The bilateral carotid arteries have minimal plaque throughout. Recommendations: Test completed on 08/26/2016 at 11:40:00 am. Findings Carotid Duplex: Right: There is nonstenotic plaque in the right proximal common carotid artery with a PSV of 89 cm/s and a EDV of 7 cm/s. There is smooth heterogeneous plaque. There is nonstenotic plaque in the right mid common carotid artery with a PSV of 59 cm/s and a EDV of 6 cm/s. There is smooth heterogeneous plaque. There is nonstenotic plaque in the right distal common carotid artery with a PSV of 52 cm/s and a EDV of 7 cm/s. There is smooth heterogeneous plaque. There is nonstenotic plaque in the right bifurcation with a PSV of 31 cm/s and a EDV of 7 cm/s. There is smooth heterogeneous plaque. There is nonstenotic plaque in the right proximal internal carotid artery with a PSV of 58 cm/s and a EDV of 10 cm/s. There is smooth heterogeneous plaque. There is nonstenotic plaque in the right mid internal carotid artery with a PSV of 66 cm/s and a EDV of 8 cm/s. There is smooth heterogeneous plaque. The right distal internal carotid artery has a PSV of 77 cm/s and a EDV of 15 cm/s. There is nonstenotic plaque in the right eca with a PSV of 96 cm/s and a EDV of 6 cm/s. There is smooth heterogeneous plaque. The right vertebral artery has a PSV of 56 cm/s and a EDV of 11 cm/s. Left: There is nonstenotic plaque in the left proximal common carotid artery with a PSV of 97 cm/s and a EDV of 12 cm/s. There is smooth heterogeneous plaque. There is nonstenotic plaque in the left mid common carotid artery with a PSV of 53 cm/s and a EDV of 11 cm/s. There is smooth heterogeneous plaque. There is nonstenotic plaque in the left distal common carotid artery with a PSV of 39 cm/s and a EDV of 8 cm/s. There is smooth heterogeneous plaque. There is nonstenotic plaque in the left bifurcation with a PSV of 46 cm/s and a EDV of 9 cm/s. There is smooth heterogeneous plaque. There is nonstenotic plaque in the left proximal internal carotid artery with a PSV of 63 cm/s and a EDV of 12 cm/s. There is smooth heterogeneous plaque. The left mid internal carotid artery has a PSV of 62 cm/s and a EDV of 8 cm/s. The left distal internal carotid artery has a PSV of 94 cm/s and a EDV of 19 cm/s. There is nonstenotic plaque in the left eca with a PSV of 103 cm/s and a EDV of 9 cm/s. There is smooth heterogeneous plaque. The left vertebral artery has a PSV of 48 cm/s and a EDV of 6 cm/s. Prior Study: No significant change compared to prior study dated: 05/12/2011. Carotid Results Right PSV EDV Assessment Proximal CCA 89 7 Non Stenotic Plaque Mid CCA 59 6 Non Stenotic Plaque Distal CCA 52 7 Non Stenotic Plaque Bifurcation 31 7 Non Stenotic Plaque Proximal ICA 58 10 Non Stenotic Plaque Mid ICA 66 8 Non Stenotic Plaque Distal ICA 77 15 Normal ECA 96 6 Non Stenotic Plaque Vertebral Artery 56 11 Normal Left PSV EDV Assessment Proximal CCA 97 12 Non Stenotic Plaque Mid CCA 53 11 Non Stenotic Plaque Distal CCA 39 8 Non Stenotic Plaque Bifurcation 46 9 Non Stenotic Plaque Proximal ICA 63 12 Non Stenotic Plaque Mid ICA 62 8 Normal Distal ICA 94 19 Normal ECA 103 9 Non Stenotic Plaque Vertebral Artery 48 6 Normal Ratio's Right ICA/CCA Ratio: 1.31 ICA/CCA Values: 77/59 Left ICA/CCA Ratio: 1.77 ICA/CCA Values: 94/53 Updated by Saud Chacon MD on 08/27/2016 7:21:43 AM electronically signed on 08/27/2016 7:23:39 AM with status of Final
[2016-08-27] MEDS ORDERED: Aminoglycoside Consult 1 EACH MC ONE (07:46)
[2016-08-27] MEDS ORDERED: *HR* GlipiZIDE 5 MG TABLET PO SCH (08:00)
[2016-08-27] MEDS ORDERED: Cefepime HCl 1,000 MG in D5% in Water (Mini-Bag+) 100 ML IVPB SCH (08:00)
--- NOTE | 2016-08-27 10:03 | Electrocardiograph Report ---
[address] [address] Test Date: 2016-08-26 Pat Name: Miguelito Borrego Department: 111 Room: 2NE17 Gender: M Copywriting Intern: : 1925 Requested By: Parker Nails Order Number: [id number] Reading MD: Sharon Mcclain Measurements Intervals [place] Rate: 78 P: 67 FL: 173 QRS: -26 QRSD: 166 T: 128 QT: 428 QTc: 461 Interpretive Statements SINUS RHYTHM LEFT BUNDLE BRANCH BLOCK Electronically Signed On 08-27-2016 10:02:25 EST by Sharon Mcclain
--- NOTE | 2016-08-27 11:02 | Cardiology Progress Note ---
Date of Encounter: 08/27/16 Time of Encounter: 11:00 Assessment and Plan (1) Acute CVA (cerebrovascular accident) Current Visit: Yes Status: Acute Coumadin therapy recommended by neurology d/t concern for embolic stroke. Coumadin therapy is reasonable in the setting of recurrent CVA with concern for embolic etiology. Recommend stopping plavix if starting coumadin. Discussed SHASHA with cardiology team. If there is concern for embolic CVA and coumadin already recommended no indication for SHASHA. Agree with coumadin recommendation. SHASHA wIll not change therapy. I tried to call son and discuss plan but his phone was disconnected. No history of atrial fibrillation on review of records.No afib seen in telemetry review. TTE- EF 45% (45-50% on previous TTE 2013). Global and segmental LV wall motion abnormalities. Moderate concenteric LVH. Mild diastolic dysfunction. S/p TAVR with normal prosthetic aortic gradient at 13 mmHg. Mild to moderate MR. No evidence of PFO. Telemetry review shows no definite signs of atrial fibrillation. SR with LBBB seen. Occasional PAC. Occasional junctional beats. Plan: Agree coumadin therapy is reasonable for CVA prevention . Would hold plavix if starting coumadin. Recommend physical therapy or rehab to decrease fall risk. Out pt f/u with EP to discuss possible loop recorder. (2) CAD (coronary artery disease) Current Visit: No Status: Chronic H/o 5V CABG remotely. Asa, statin, and bb. Qualifiers: Coronary Disease-Associated Artery/Lesion type: [place] artery [place] vs. transplanted heart: [place] heart Associated angina: without angina Qualified Code(s): I25.10 - Atherosclerotic heart disease of [place] coronary artery without angina pectoris (3) S/P TAVR (transcatheter aortic valve replacement) Current Visit: Yes Status: Acute H/o TAVR in 2013. TTE shows normal prosthetic aortic valve gradient. Discussion w patient/family: The assessment and plan as outlined above was discussed with the patient and/or family members who expressed understanding and agreement. All questions were answered. Thank you for involving us in the care of your patient. Please call with any questions. Subjective Principal diagnosis: CVA Interval history: No new events overnight. Pt oriented to time and place. Cooperative with exam. Objective Vital Signs, Last 4 Hours Temp Pulse Resp BP Pulse Ox 08/27/16 08:14 99.8 F H 73 16 135/64 98 General: Conversant, No Apparent Distress HEENT: Atraumatic, Normocephaly, Mucus Membranes Moist Neck: No JVD, Normal carotid pulses Cardiac: Reg Rate and Rhythm, Normal S1 and S2, No Murmur, Other (facial droop noted. Push pulls in BUE and BLE equal. ) Lungs: Normal Breath Sounds, No Wheeze, Rales, Rhonchi Neuro: Alert and responsive, Other (Keeps eyes closed during conversation. ) Abdomen: Soft, Non-Tender Skin: No rashes noted on visualized skin Musculoskeletal: No Chest Wall Tenderness Extremities: No Clubbing, No Cyanosis, No Edema, Normal Pulses Results 08/27/16 05:21 08/27/16 05:21 Lab Results 08/26/16 08/26/16 08/27/16 22:55 22:55 05:21 WBC 28.3 H D Hgb 19.5 H Hct 55.7 H Plt Count 127 L Sodium Potassium Chloride Carbon Dioxide BUN Creatinine Glucose Calcium Troponin I 0.04 H* B-Natriuretic Peptide 715 H TSH 08/27/16 08/27/16 08/27/16 05:21 05:21 05:21 WBC Hgb Hct Plt Count Sodium 135 L Potassium 3.1 L Chloride 102 Carbon Dioxide 20 BUN 19 Creatinine 1.10 Glucose 379 H Calcium 8.5 L Troponin I 0.04 H* B-Natriuretic Peptide TSH 1.107 - VTE Documentation of Mechanical Device: Intermittent pneumatic compression device Consult Discharge Plan - Plan Referrals: David Whipple DO [Primary Care Provider] - 09/05/16 1:30 pm
[2016-08-27] MEDS: Pantoprazole 40 MG VIAL IVP SCH (12:23)
[2016-08-27] MEDS: Furosemide 40 MG TABLET PO SCH (12:23)
[2016-08-27] MEDS: Aspirin 81 MG TAB.CHEW PO SCH (12:23)
[2016-08-27] MEDS: *HR* Digoxin 0.125 MG TABLET PO SCH (12:23)
--- NOTE | 2016-08-27 14:46 | Internal Med Progress Note ---
Date of Encounter: 08/27/16 Time of Encounter: 11:00 - Assessment and plan (1) Pneumonia Current Visit: Yes Status: Acute Assessment and plan: Patient had an episode of respiratory distress and hypoxia overnight; Chest XRay and CT chest showed possible bibasilar infiltrates/aspiration; has been started on IV Vancomycin, Cefepime and Levaquin; will start IV Clindamycin and d /c Cefepime and Vancomycin; send blood cultures as he is also noted to have significant leukocytosis today, no bandemia; Qualifiers: Pneumonia type: aspiration pneumonia Aspiration pneumonia type: unspecified Laterality: bilateral Lung location: lower lobe of lung Qualified Code(s): J69.0 - Pneumonitis due to inhalation of food and vomit (2) Acute CVA (cerebrovascular accident) Current Visit: Yes Status: Acute Assessment and plan: MRI brain shows acute infarct in right basal ganglia along with multiple lacunar infarcts in right frontal and left occipitotemporal areas. 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 Hold Plavix at this time and continue ASA and Coumadin. Echocardiogram shows no e/o atrial or ventricular thrombus. Lipid profile noted to be within normal limits; continue statin; BP better controlled today. PT/OT consults pending. Speech therapy evaluation and MBS study completed, recommend puree diet with honey-thick liquids; (3) CAD (coronary artery disease) Current Visit: Yes Status: Chronic Qualifiers: Coronary Disease-Associated Artery/Lesion type: [place] artery [place] vs. transplanted heart: [place] heart Associated angina: without angina Qualified Code(s): I25.10 - Atherosclerotic heart disease of [place] coronary artery without angina pectoris (4) Diabetes mellitus type 2, noninsulin dependent Current Visit: Yes Status: Chronic Assessment and plan: Accucheck blood glucose monitoring with sliding scale insulin as needed. Blood sugars noted to be elevated today, continue to monitor. Check HbA1C; consistent carbohydrate diet. (5) Essential hypertension Current Visit: Yes Status: Chronic (6) Hyperlipidemia Current Visit: Yes Status: Chronic Qualifiers: Hyperlipidemia type: unspecified Qualified Code(s): E78.5 - Hyperlipidemia , unspecified (7) CHF (congestive heart failure) Current Visit: Yes Status: Chronic Assessment and plan: does not appear to be in acute exacerbation. Echocardiogram shows moderately decreased EF around 45%, moderate concentric LVH, mild LV diastolic dysfunction , mild-moderate MR, AVR; continue Lasix; Qualifiers: Congestive heart failure type: combined Congestive heart failure chronicity : chronic Qualified Code(s): I50.42 - Chronic combined systolic (congestive) and diastolic (congestive) heart failure - Subjective Interval history: Able to answer that he is okay; no reported pain; able to move his left arm and leg, although weak; plan of care d/w son at bedside; - Constitutional Vitals: Temp Pulse Resp BP Pulse Ox 99.9 F H 76 16 123/67 94 L 08/27/16 12:00 08/27/16 12:00 08/27/16 12:00 08/27/16 12:08/27/16 12:00 General appearance: Present: A&O X 1 - Respiratory Respiratory exam: Present: decreased breath sounds (B/L bases), CTAB. Absent: accessory muscle use, rales, rhonchi, wheezes - Cardiovascular Cardiovascular exam: Present: RRR, +S1, +S2. Absent: diastolic murmur, gallop, rubs, systolic murmur - GI/Abdominal GI/Abdominal exam: Present: normal bowel sounds, soft, no peritoneal signs. Absent: distended, tenderness - Extremities Exam Extremities exam: Present: warm, radial pulses palpable and symetrical. Absent : calf tenderness, cyanotic, pedal edema - Neurological Exam Neurological exam: Present: no focal deficits, strengths equal and symetr throughout (4/5 motor power left UE and LE). Absent: pronater drift, facial droop, speech deficit Internal Medicine: Result - Labs CBC & Chem 7: 08/27/16 05:21 08/27/16 05:21 Labs: Short CBC 08/27/16 Range/Units 05:21 WBC 28.3 H D (4.3-11.1) K/mcL Hgb 19.5 H (12.9-16.9) g/dL Hct 55.7 H (37.5-50.1) % Plt Count 127 L (140-400) K/mcL Neutrophils # 24.9 H (1.6-8.9) K/mcL BMP 08/27/16 05:21 Sodium 135 L Potassium 3.1 L Chloride 102 Carbon Dioxide 20 BUN 19 Creatinine 1.10 Glucose 379 H Calcium 8.5 L Cardiac Enzymes 08/26/16 08/27/16 Range/Units 22:55 05:21 Troponin I 0.04 H* 0.04 H* (0-0.03) ng/mL - ABG Interpretation ABG results: PT/INR, D-dimer PT 13.5 Seconds (9.4-12.1) H 08/25/16 13:33 - Impressions Impressions Chest X-Ray 08/26/16 21:56 IMPRESSION: 1. Left lower lobe atelectasis and/or infiltrate. D/ / Chilango Sher MD / Chilango Sher MD Interpreting Provider: Chilango Sher MD Videofluoroscopic Swallow 08/27/16 08:28 IMPRESSION: Aspiration of nectar thick barium. Please see separate speech pathology report for full discussion of findings and recommendations. D/ / 08/27/2016 11:51:10 Tomas Haas MD / Lexi Lombardo Interpreting Provider: Tomas Haas MD Chest CT 08/27/16 09:00 IMPRESSION: 1. Trace left pleural effusion with bibasilar opacities, left significantly worse than right. Findings are most suggestive of infection although aspiration can have a similar appearance. Findings do not represent atelectasis. 2. Severe emphysema. 3. Severe atherosclerosis. D/ / 08/27/2016 09:17:23 Iona Jarrett MD / alzie Interpreting Provider: Iona Jarrett MD - VTE Documentation of Mechanical Device: Intermittent pneumatic compression device Consult Discharge Plan - Plan Referrals: David Whipple DO [Primary Care Provider] - 09/05/16 1:30 pm
[2016-08-27] MEDS: Potassium Chloride Elixir 20 MEQ/15 ML UDC PO SCH ×2 (16:04→22:38)
[2016-08-27] MEDS: Clindamycin 600 MG/50 ML 600 MG/50 ML IV.SOLN IVPB SCH (16:05)
[2016-08-27 16:24] LABS: Hemoglobin A1C 6.8 %
--- NOTE | 2016-08-27 17:02 | Event Note ---
Date of Encounter: 08/27/16 Time of Encounter: 14:58 - Cardiology Event Note Mr. Borrego's son< Nikhil, was at his bedside. I discussed anticoagulation. Coumadin risks, indications, alternatives, and adverse effects reviewed. Mr. Borrego's son inquired about Xarelto. Xarelto indication and use discussed. He prefers xarelto. I discussed with Dr. Hart. Xarelto is indicated for atrial fibrillation. Unknown if patient truly has atrial fibrillation. Anticoagulation is recommended for patient's embolic CVA. Coumadin is recommended currently. I discussed placemant of loop recorder to rule out atrial fibrillation. Patient and patient's son is agreeable. Plan for loop recorder placement tomorrow. Coumadin is being started tonight. Pharmacy to dose. Patient is planning to go to a rehabilitation facility.
--- NOTE | 2016-08-27 17:24 | Neurology Progress Note ---
Date of Encounter: 08/27/16 Time of Encounter: 17:20 Assessment and Plan (1) Acute CVA (cerebrovascular accident) Current Visit: Yes Status: Acute As mentioned earlier the patient is a 89 year old man with clear embolic infarct involving two different hemisphere while on aspirin and plavix therapy, in lieu of evidence of CHF with LVEF of 45% with multiple wall motion hypokinesis on TTE. It is felt that the patient would be benefit from anticoagulation therapy due to the pure embolic nature evidenced on the MRI of brain, although there is no single definitive indication in terms of cardiac diseases for anticoagulation therapy. Likelihood of detecting atrial fibrillation is substantial due to his age with presence of embolic infarct, and loop recording is needed to assess presence of atrial fibrillation where cumadin can be substituted with one of the NOACs in the future. Please continue medical and supportive care. Subjective Principal diagnosis: CVA Interval history: Patient seen and examined. Today he is still a little drowsy but easily arousable and answers questions appropriately. Oriented to time and place and went to sleep when not stimulated. Has right gaze and head preference and left side neglect Stroke work up so far: carotid artery showed minimal plaques bilaterally at the ICA. TTE showed LVEF about 45% with multiple areas of hypokinesis wall motion abnormality seen. No evidence of PFO. Cardiology consult in place and in agreement with treatment plan with coumadin, to start tonight. Objective - Constitutional Vitals: Temp Pulse Resp BP Pulse Ox 99.7 F H 70 16 121/56 96 08/27/16 16:22 08/27/16 16:22 08/27/16 16:22 08/27/16 16:22 08/27/16 16:22 - Neurological Exam Sensorimotor examination: Present: other (Difficult to assess due to drowsiness , but no gross defect) Motor Examination: Present: other (Left sided neglect. Right side 5/5 both arm and leg. Left side, hand window caser 4/5 and able to lift left left leg off the bed so muscle strength 4/5) Motor examination - right side: 5/5: triceps, wrist flexion, wrist extension, window caser, hip flexors, tibialis Anterior, quadriceps, toe extension (EHL), plantarflexion Motor examination - left side: 4/5: deltoids, biceps, triceps, wrist flexion, wrist extension, hip flexors, window caser, quadriceps, tibialis Anterior, toe extension (EHL), plantarflexion Sensation intact: Present: other (Difficult to assess due to drowsiness. ) Posture: Present: other (right head and eye gaze preference, mild and improved) Reflexes: Biceps: 1+, Triceps: 1+, Brachioradialis: 1+, Patella: 1+, Achilles: 1 + Mental Status Examination: Present: awake, alert, oriented to person, oriented to place, oriented to time, follows commands appropriately, drowsy (easily arousable), lethargic (Patient answers simple qeustions only and is drowsy but easily arousable. Turns head to the right side, but no significant gaze preference seen), opens eyes to voice, opens eyes to noxious stimulation, follows simple commands Cranial nerve examination: Present: PERRL, EOMI (parital gaze palsy to the left side. Gaze preference to the right side noted), corneal reflexes brisk symmetrically, sensory to face intact, mastication intact, no facial asymmetry is present, gag reflex intact, tongue protrudes midline (tongue protrude to the left side) - VTE Documentation of Mechanical Device: Intermittent pneumatic compression device Results - Laboratory Findings CBC and BMP: 08/27/16 05:21 08/27/16 05:21 Abnormal lab findings: Abnormal lab results WBC 28.3 K/mcL (4.3-11.1) H D 08/27/16 05:21 RBC 6.52 M/mcL (4.19-5.50) H 08/27/16 05:21 Hgb 19.5 g/dL (12.9-16.9) H 08/27/16 05:21 Hct 55.7 % (37.5-50.1) H 08/27/16 05:21 RDW 14.6 % (11.5-14.5) H 08/27/16 05:21 Plt Count 127 K/mcL (140-400) L 08/27/16 05:21 Neutrophils # 24.9 K/mcL (1.6-8.9) H 08/27/16 05:21 Monocytes # 1.8 K/mcL (0.0-1.3) H 08/27/16 05:21 Reactive Lymphocytes Present (Not Present) A 08/27/16 05:21 Platelet Estimate Slight Decrease (Normal) L 08/27/16 05:21 PT 13.5 Seconds (9.4-12.1) H 08/25/16 13:33 VBG pH 7.43 pH Units (7.32-7.42) H 08/27/16 05:21 VBG pCO2 33 mmHg (41-51) L 08/27/16 05:21 VBG pO2 95 mmHg (25-40) H 08/27/16 05:21 Sodium 135 mEq/L (136-145) L 08/27/16 05:21 Potassium 3.1 mEq/L (3.5-4.5) L 08/27/16 05:21 Glucose 379 mg/dL (70-99) H 08/27/16 05:21 POC Glucose 277 (58-89) H 08/27/16 12:02 Hemoglobin A1c 6.8 % (-5.6) H 08/27/16 15:47 Calcium 8.5 mg/dL (8.6-10.8) L 08/27/16 05:21 Troponin I 0.04 ng/mL (0-0.03) H* 08/27/16 05:21 B-Natriuretic Peptide 715 pg/mL (0-100) H 08/26/16 22:55 LDL Cholesterol, Calc 108 mg/dL (0-99) H 08/26/16 00:52 Urine Protein 100 mg/dL (Neg-Trace) H 08/26/16 05:20 Urine Glucose (UA) 500 mg/dL (Normal) H 08/26/16 05:20 Urine Ketones Trace mg/dL (Negative) H 08/26/16 05:20 Urine Blood Trace (Negative) H 08/26/16 05:20 Urine Microscopic RBC 3-5 per hpf (0-3) H 08/26/16 05:20 Ur Squamous Epith Cells Moderate per lpf (None-Few) H 08/26/16 05:20 Digoxin < 0.3 ng/mL (0.8-2.0) L 08/25/16 13:33 Consult Discharge Plan - Plan Referrals: David Whipple DO [Primary Care Provider] - 09/05/16 1:30 pm
[2016-08-27] MEDS: Insulin LISPRO 300 UNITS/3 ML VIAL SQ SCH ×2 (17:36→22:19)
[2016-08-27] MEDS ORDERED: Warfarin perPT PO PRN (18:00)
[2016-08-27] MEDS ORDERED: *HR* Warfarin 2.5 MG TABLET PO ONE (18:00)
[2016-08-27] MEDS ORDERED: *HR* Rivaroxaban 15 MG TABLET PO SCH (18:00)
[2016-08-27] MEDS: Warfarin perPT PO SCH (22:10)
[2016-08-28] MEDS: Clindamycin 600 MG/50 ML 600 MG/50 ML IV.SOLN IVPB SCH ×3 (00:13→18:14)
[2016-08-28] MEDS: Ipratropium/Albuterol Neb 3 ML IH SCH ×4 (04:31→23:49)
[2016-08-28 04:42] LABS: Basophils # 0.1 K/mcL (0.0-0.2); Basophils % 0.3 %; Hematocrit 53.3 % (37.5-50.1); Hemoglobin 18.4 g/dL (12.9-16.9); Immature Granulocytes % 0.5 % (0-4); Lymphocytes # 1.6 K/mcL (0.6-4.6); Lymphocytes % 8.1 %; Mean Corpuscular HGB Conc 34.5 g/dL (31.6-35.5); Mean Corpuscular Hemoglobin 30.3 pg (28.0-33.3); Mean Corpuscular Volume 87.8 fL (83.0-100.0); Monocytes # 1.5 K/mcL (0.0-1.3); Monocytes % 7.4 %; Neutrophils # 16.7 K/mcL (1.6-8.9); Platelet Count 132 K/mcL (140-400); Red Blood Count 6.07 M/mcL (4.19-5.50); Red Cell Distribution Width 14.2 % (11.5-14.5); Segmented Neutrophils % 83.7 %
[2016-08-28] MEDS: Levofloxacin 500 MG/100 ML 500 MG/100 ML BAG IVPB SCH (05:02)
[2016-08-28 05:03] LABS: Calcium 8.8 mg/dL (8.6-10.8)
[2016-08-28 05:14] LABS: Potassium 4.7 mEq/L (3.5-4.5)
[2016-08-28 10:17] LABS: INR 1.4; Prothrombin Time 14.7 Seconds (9.4-12.1)
[2016-08-28] MEDS ORDERED: 0.9 % Sodium Chloride 1,000 ML IVC SCH (10:45)
[2016-08-28] MEDS: *HR* Digoxin 0.125 MG TABLET PO SCH (11:06)
[2016-08-28] MEDS: Aspirin 81 MG TAB.CHEW PO SCH (11:06)
[2016-08-28] MEDS: Insulin LISPRO 300 UNITS/3 ML VIAL SQ SCH ×4 (11:12→20:39)
[2016-08-28] MEDS: GuaiFENesin Liq 200 MG/10 ML UDC PO SCH ×2 (12:14→18:15)
--- NOTE | 2016-08-28 13:05 | Internal Med Progress Note ---
Date of Encounter: 08/28/16 Time of Encounter: 10:45 - Assessment and plan (1) Acute kidney injury Current Visit: Yes Status: Acute Assessment and plan: Likely prerenal. We will give gentle hydration and hold diuretics at this time. Continue to monitor serum creatinine and dose antibiotics according to current GFR. (2) Pneumonia Current Visit: Yes Status: Acute Assessment and plan: Patient had an episode of respiratory distress and hypoxia during this hospitalization. Chest XRay and CT chest showed possible bibasilar infiltrates/ aspiration; continue IV Clindamycin and Levaquin; pending blood cultures; much improved clinically. Improving leukocytosis, which is also related to stress. Qualifiers: Pneumonia type: aspiration pneumonia Aspiration pneumonia type: unspecified Laterality: bilateral Lung location: lower lobe of lung Qualified Code(s): J69.0 - Pneumonitis due to inhalation of food and vomit (3) Acute CVA (cerebrovascular accident) Current Visit: Yes Status: Acute Assessment and plan: MRI brain shows acute infarct in right basal ganglia along with multiple lacunar infarcts in right frontal and left occipitotemporal areas. Neurology consult noted; Cardiology consult noted regarding anticoagulation; due to evidence of embolic pattern of stroke involving multiple areas, it is decided to start patient on long-term anticoagulation preferably with Coumadin as there is no clear evidence of atrial fibrillation at this time and normal anticoagulants are not indicated without documented atrial fibrillation. Patient received loop recorder today and will follow up with cardiology as outpatient. continue aspirin and statin; PT/OT consults noted, recommend placement in extended care facility. Speech therapy evaluation and MBS study completed, recommend puree diet with honey- thick liquids; (4) CAD (coronary artery disease) Current Visit: Yes Status: Chronic Qualifiers: Coronary Disease-Associated Artery/Lesion type: [place] artery [place] vs. transplanted heart: [place] heart Associated angina: without angina Qualified Code(s): I25.10 - Atherosclerotic heart disease of [place] coronary artery without angina pectoris (5) Diabetes mellitus type 2, noninsulin dependent Current Visit: Yes Status: Chronic Assessment and plan: Accucheck blood glucose monitoring with sliding scale insulin as needed. Blood sugars noted to be better controlled today, continue to monitor. HbA1C noted to be 6.8%; consistent carbohydrate diet. (6) Essential hypertension Current Visit: Yes Status: Chronic (7) Hyperlipidemia Current Visit: Yes Status: Chronic Qualifiers: Hyperlipidemia type: unspecified Qualified Code(s): E78.5 - Hyperlipidemia , unspecified (8) CHF (congestive heart failure) Current Visit: Yes Status: Chronic Assessment and plan: does not appear to be in acute exacerbation. Echocardiogram shows moderately decreased EF around 45%, moderate concentric LVH, mild LV diastolic dysfunction , mild-moderate MR, AVR; will hold Lasix and potassium supplements at this time due to renal dysfunction and mild hyperkalemia. Continue to monitor serum creatinine and electrolytes. Qualifiers: Congestive heart failure type: combined Congestive heart failure chronicity : chronic Qualified Code(s): I50.42 - Chronic combined systolic (congestive) and diastolic (congestive) heart failure - Subjective Interval history: Patient appears much more alert today; reports some back pain and discomfort due to lying in bed for too long; - Constitutional Vitals: Temp Pulse Resp BP Pulse Ox 98.2 F 63 18 140/61 96 08/28/16 12:54 08/28/16 12:54 08/28/16 12:54 08/28/16 12:54 08/28/16 12:54 General appearance: Present: A&O X 2 Exam: facial droop noted - Respiratory Respiratory exam: Present: CTAB. Absent: accessory muscle use, rales, rhonchi, wheezes - Cardiovascular Cardiovascular exam: Present: RRR, +S1, +S2. Absent: diastolic murmur, gallop, rubs, systolic murmur - GI/Abdominal GI/Abdominal exam: Present: normal bowel sounds, soft, no peritoneal signs. Absent: distended, tenderness - Neurological Exam Neurological exam: Present: oriented X3, no focal deficits, strengths equal and symetr throughout (decreased on the left side with right facial droop). Absent : pronater drift, facial droop, speech deficit - Skin Skin exam: Present: dry, intact Internal Medicine: Result - Labs CBC & Chem 7: 08/28/16 04:12 08/28/16 04:12 Labs: Short CBC 08/28/16 Range/Units 04:12 WBC 20.0 H (4.3-11.1) K/mcL Hgb 18.4 H (12.9-16.9) g/dL Hct 53.3 H (37.5-50.1) % Plt Count 132 L (140-400) K/mcL Neutrophils # 16.7 H (1.6-8.9) K/mcL BMP 08/28/16 04:12 Sodium 140 Potassium 4.7 H D Chloride 106 Carbon Dioxide 24 BUN 37 H D Creatinine 1.47 H Glucose 370 H Calcium 8.8 - ABG Interpretation ABG results: PT/INR, D-dimer PT 14.7 Seconds (9.4-12.1) H 08/28/16 09:47 - VTE Documentation of Mechanical Device: Intermittent pneumatic compression device Consult Discharge Plan - Plan Referrals: David Whipple DO [Primary Care Provider] - 09/05/16 1:30 pm
--- NOTE | 2016-08-28 14:07 | Invasive Diagnostic Lab ---
Loop Recorder Insertion Name: Miguelito Borrego Date of Study: 08/28/2016 Date: 1925 Ht: 183.0 cm / 72.0 in Medical Record#: [id number] Age: 89 Wt: 93.0 kg / 205.0 lb Gender: Male BSA: 2.15 Location: Fluoro Dose: 0 mGy BMI: 27.77 Performing MD: Caleb Mcclain MD, [facility] Referring MD: David Whipple DO Procedures Performed: Procedure LOOP RECORDER INSERTION Indications: Description Cryptogenic stroke Impressions: IMPLANTABLE LOOP RECORDER * Loop recorder successfully implant. Procedure complete without incident. Appropriate device functionality was observed at the end of the case. Recommendations: The patient will follow-up in 4-6 weeks for a post-pacemaker interrogation and evaluation with their [employer]. Procedure Description: After informed consent was obtained, the patient was prepped and draped in the sterile fashion exposing the left chest. Local anesthesia was performed using 1% Lidocaine. A 1cm incision was created with the punch tool. A small pocket was created for the loop recorder. The loop recorder was placed in the pocket with the provided tool. Steri-Strips were affixed and 4x4s rolled with tape. Procedure Medications: Time Medication Dose Unit Route 01:44 PM Lidocaine 2% 9 mL Subcutaneous Contrast: 0 0 ml. Complications: No complications occurred during the procedure. Complication None Updated by Caleb Mcclain MD, FAC on 08/28/2016 2:00:05 PM electronically signed on 08/28/2016 2:00:34 PM with status of Final
--- NOTE | 2016-08-28 15:11 | Event Note ---
Date of Encounter: 08/28/16 Time of Encounter: 13:10 - Cardiology Event Note S/p loop recorder insertion w/o complication. F/u will be made in the cardiology clinic. Cardiology will sign off. Call with questions.
--- NOTE | 2016-08-28 17:15 | Neurology Progress Note ---
Date of Encounter: 08/28/16 Time of Encounter: 17:13 Assessment and Plan (1) Acute CVA (cerebrovascular accident) Current Visit: Yes Status: Acute As discussed with cardiology, and primary medical team patient started on Coumadin. Discontinued Plavix. Loop recorder in place. Patient to follow up with director of casework department. Will target INR 1.5-2.5 instead of 2-3. If loop recording showed evidence of atrial fibrillation or if other indication for full range anticoagulation then target INR can change or one of the NOACs can be considered. Continue PT. Fall precaution advised. Will sign off at this time. Please call if any questions Subjective Principal diagnosis: CVA Interval history: Patient seen and examined. Started coumadin last night. Patient denies headaches. Neurological status stable. Still neglect left side. Answering questions. No significant hypersomnolence. Objective - Constitutional Vitals: Temp Pulse Resp BP Pulse Ox 98.2 F 63 18 140/61 94 L 08/28/16 12:54 08/28/16 12:54 08/28/16 16:39 08/28/16 12:54 08/28/16 16:39 - Neurological Exam Sensorimotor examination: Present: other (Difficult to assess due to drowsiness , but no gross defect) Motor Examination: Present: other (Left sided neglect. Right side 5/5 both arm and leg. Left side, hand apprentice technician 4/5 and able to lift left left leg off the bed so muscle strength 4/5) Motor examination - left side: 4/5: deltoids, biceps, triceps, wrist flexion, wrist extension, hip flexors, apprentice technician, quadriceps, tibialis Anterior, toe extension (EHL), plantarflexion Sensation intact: Present: other (Difficult to assess due to drowsiness. ) Posture: Present: other (right head and eye gaze preference, mild and improved) Mental Status Examination: Present: awake, alert, oriented to person, oriented to place, oriented to time, follows commands appropriately, drowsy (easily arousable), lethargic (Patient answers simple qeustions only and is drowsy but easily arousable. Turns head to the right side, but no significant gaze preference seen), opens eyes to voice, opens eyes to noxious stimulation, follows simple commands Cranial nerve examination: Present: PERRL, EOMI (parital gaze palsy to the left side. Gaze preference to the right side noted), corneal reflexes brisk symmetrically, sensory to face intact, mastication intact, no facial asymmetry is present, gag reflex intact, tongue protrudes midline (tongue protrude to the left side) - VTE Documentation of Mechanical Device: Intermittent pneumatic compression device Results - Laboratory Findings CBC and BMP: 08/28/16 04:12 08/28/16 04:12 Abnormal lab findings: Abnormal lab results WBC 20.0 K/mcL (4.3-11.1) H 08/28/16 04:12 RBC 6.07 M/mcL (4.19-5.50) H 08/28/16 04:12 Hgb 18.4 g/dL (12.9-16.9) H 08/28/16 04:12 Hct 53.3 % (37.5-50.1) H 08/28/16 04:12 Plt Count 132 K/mcL (140-400) L 08/28/16 04:12 Neutrophils # 16.7 K/mcL (1.6-8.9) H 08/28/16 04:12 Monocytes # 1.5 K/mcL (0.0-1.3) H 08/28/16 04:12 Reactive Lymphocytes Present (Not Present) A 08/27/16 05:21 Platelet Estimate Slight Decrease (Normal) L 08/27/16 05:21 PT 14.7 Seconds (9.4-12.1) H 08/28/16 09:47 VBG pH 7.43 pH Units (7.32-7.42) H 08/27/16 05:21 VBG pCO2 33 mmHg (41-51) L 08/27/16 05:21 VBG pO2 95 mmHg (25-40) H 08/27/16 05:21 Potassium 4.7 mEq/L (3.5-4.5) H D 08/28/16 04:12 BUN 37 mg/dL (8-26) H D 08/28/16 04:12 Creatinine 1.47 mg/dL (0.72-1.25) H 08/28/16 04:12 Est GFR ( Amer) 55 (> 60) L 08/28/16 04:12 Est GFR (Non-Af Amer) 45 (> 60) L 08/28/16 04:12 Glucose 370 mg/dL (70-99) H 08/28/16 04:12 POC Glucose 255 (58-89) H 08/28/16 08:07 Hemoglobin A1c 6.8 % (-5.6) H 08/27/16 15:47 Calculated Osmolality 314 (280-300) H 08/28/16 04:12 Troponin I 0.04 ng/mL (0-0.03) H* 08/27/16 05:21 B-Natriuretic Peptide 715 pg/mL (0-100) H 08/26/16 22:55 LDL Cholesterol, Calc 108 mg/dL (0-99) H 08/26/16 00:52 Urine Protein 100 mg/dL (Neg-Trace) H 08/26/16 05:20 Urine Glucose (UA) 500 mg/dL (Normal) H 08/26/16 05:20 Urine Ketones Trace mg/dL (Negative) H 08/26/16 05:20 Urine Blood Trace (Negative) H 08/26/16 05:20 Urine Microscopic RBC 3-5 per hpf (0-3) H 08/26/16 05:20 Ur Squamous Epith Cells Moderate per lpf (None-Few) H 08/26/16 05:20 Digoxin < 0.3 ng/mL (0.8-2.0) L 08/25/16 13:33 Consult Discharge Plan - Plan Referrals: Xavier Bailey CNP [Advanced Practice Nurse] - 10/03/16 9:30 am (DEVICE CHECK) Caleb Mcclain MD [Partnered Physician] - 12/05/16 12:30 pm Nemo Monzon CNP [Partnered Physician] - 09/04/16 11:30 am (WOUND CHECK) David Whipple DO [Primary Care Provider] - 09/05/16 1:30 pm
[2016-08-28] MEDS ORDERED: *HR* Warfarin 2.5 MG TABLET PO ONE (18:00)
[2016-08-28] MEDS: Warfarin perPT PO SCH (18:15)
[2016-08-28] MEDS: Furosemide 40 MG TABLET PO SCH (18:18)
[2016-08-29] MEDS: Clindamycin 600 MG/50 ML 600 MG/50 ML IV.SOLN IVPB SCH ×2 (01:17→08:18)
[2016-08-29] MEDS: GuaiFENesin Liq 200 MG/10 ML UDC PO SCH ×2 (01:18→06:14)
[2016-08-29] MEDS: Levofloxacin 250 MG/50 ML 250 MG/50 ML BAG IVPB SCH ×2 (04:12→08:17)
[2016-08-29] MEDS: Ipratropium/Albuterol Neb 3 ML IH SCH ×3 (05:57→15:54)
[2016-08-29 06:54] LABS: Basophils # 0.1 K/mcL (0.0-0.2); Basophils % 0.4 %; Eosinophils # 0.1 K/mcL (0.0-0.6); Eosinophils % 0.4 %; Hemoglobin 18.6 g/dL (12.9-16.9); Immature Granulocytes % 0.6 % (0-4); Lymphocytes # 1.4 K/mcL (0.6-4.6); Lymphocytes % 8.7 %; Mean Corpuscular HGB Conc 33.1 g/dL (31.6-35.5); Mean Corpuscular Hemoglobin 29.3 pg (28.0-33.3); Mean Corpuscular Volume 88.6 fL (83.0-100.0); Mean Platelet Volume 11.2 fL (9.4-12.4); Monocytes # 1.2 K/mcL (0.0-1.3); Monocytes % 7.2 %; Neutrophils # 13.3 K/mcL (1.6-8.9); Platelet Count 141 K/mcL (140-400); Red Blood Count 6.34 M/mcL (4.19-5.50); Red Cell Distribution Width 14.2 % (11.5-14.5); Segmented Neutrophils % 82.7 %
[2016-08-29 06:55] LABS: Hematocrit 56.2 % (37.5-50.1)
[2016-08-29 06:58] LABS: INR 1.3; Prothrombin Time 13.6 Seconds (9.4-12.1)
[2016-08-29 07:14] LABS: BUN/Creatinine Ratio 32 (6-26); Blood Urea Nitrogen 35 mg/dL (8-26); Carbon Dioxide 26 mEq/L (19-29); Chloride 107 mEq/L (98-109); Glucose 297 mg/dL (70-99); Osmolality,Calculated 319 (280-300); Potassium 4.3 mEq/L (3.5-4.5); Sodium 145 mEq/L (136-145); eGFR For African Americans > 60 (> 60); eGFR For Non-African Americans > 60 (> 60)
[2016-08-29] MEDS: Aspirin 81 MG TAB.CHEW PO SCH (08:18)
[2016-08-29] MEDS: *HR* Digoxin 0.125 MG TABLET PO SCH (08:18)
[2016-08-29] MEDS: Insulin LISPRO 300 UNITS/3 ML VIAL SQ SCH ×2 (08:20→11:41)
[2016-08-29 11:37] VITALS: BP 161/91
--- NOTE | 2016-08-29 14:15 | Discharge Summary ---
Date of Encounter: 08/29/16 Time of Encounter: 10:40 - Discharge Diagnosis (1) Acute kidney injury Priority: Primary Status: Acute (2) Pneumonia Priority: Primary Status: Acute Qualifiers: Pneumonia type: aspiration pneumonia Aspiration pneumonia type: unspecified Laterality: bilateral Lung location: lower lobe of lung Qualified Code(s): J69.0 - Pneumonitis due to inhalation of food and vomit (3) Acute CVA (cerebrovascular accident) Priority: Primary Status: Acute (4) CAD (coronary artery disease) Priority: Secondary Status: Chronic Qualifiers: Coronary Disease-Associated Artery/Lesion type: [place] artery Circle vs. transplanted heart: [place] heart Associated angina: without angina Qualified Code(s): I25.10 - Atherosclerotic heart disease of [place] coronary artery without angina pectoris (5) Diabetes mellitus type 2, noninsulin dependent Priority: Secondary Status: Chronic (6) Essential hypertension Priority: Secondary Status: Chronic (7) Hyperlipidemia Priority: Secondary Status: Chronic Qualifiers: Hyperlipidemia type: unspecified Qualified Code(s): E78.5 - Hyperlipidemia , unspecified (8) CHF (congestive heart failure) Priority: Secondary Status: Chronic Qualifiers: Congestive heart failure type: combined Congestive heart failure chronicity : chronic Qualified Code(s): I50.42 - Chronic combined systolic (congestive) and diastolic (congestive) heart failure - Discharge Medications Prescriptions: Aspirin 81 mg PO DAILY #30 tab.chew Atorvastatin [Lipitor] 40 mg PO HS #30 tablet Lansoprazole [Prevacid] 15 mg PO DAILY@0630 #30 capsule. Levofloxacin [Levaquin] 500 mg PO DAILY #5 tablet Home Medications: Atenolol [Tenormin] 25 mg PO DAILY 08/25/16 [History] Carvedilol [Coreg] 6.25 mg PO BIDWM 08/25/16 [History] Digoxin [Lanoxin] 0.125 mg PO DAILY 08/25/16 [History] GlipiZIDE [Glucotrol] 5 mg PO DAILY 08/25/16 [History] Metformin [Glucophage] 500 mg PO HS 08/25/16 [History] Aspirin 81 mg PO DAILY #30 tab.chew 08/29/16 [Rx] Atorvastatin [Lipitor] 40 mg PO HS #30 tablet 08/29/16 [Rx] Lansoprazole [Prevacid] 15 mg PO DAILY@0630 #30 capsule. 08/29/16 [Rx] Levofloxacin [Levaquin] 500 mg PO DAILY #5 tablet 08/29/16 [Rx] Warfarin [Coumadin] 5 mg PO 1800 08/29/16 [History] Furosemide [Lasix] 20 mg PO DAILY #0 09/05/16 [Rx] Allergies/Adverse Reactions: Allergies Penicillins [PCN] Allergy (Verified 08/25/16 14:05) See Comments Procedures/tests Complete & Pending: Procedures Performed prior 72 hours Category Date Time Status CT chest w/o contrast [CT chest wo con] [CT] Routine Cat Scan 08/27/16 09:00 Completed CL Insert Loop Recorder [CL] Routine Director Money 08/28/16 00:01 Completed ECG 12 lead ECG [ECG] Routine Y 08/27/16 07:00 Ordered ECG 12 lead ECG [ECG] Stat Y 08/26/16 21:57 Completed Date of admission: 08/26/16 13:54 Primary care physician: Yarelis Foss Consults: 08/26/16 21:56 Consult to Nurse Navigator [CONS] Routine Comment: 08/26/16 21:57 Consult to Nurse Navigator [CONS] Routine Comment: Discharging clinician: Clarita Mark Anticipated date of discharge: 08/29/16 - Patient Status Disposition: Transfer SNF Condition: Fair Functional capacity at discharge: uses cane/walker Overall status at discharge: patient is not back to baseline - Discharge Instructions Follow Up With: Xavier Bailey CNP [Advanced Practice Nurse] - 10/03/16 9:30 am (DEVICE CHECK) Caleb Mcclain MD [Partnered Physician] - 12/05/16 12:30 pm Nemo Monzon CNP [Partnered Physician] - 09/04/16 11:30 am (WOUND CHECK) David Whipple DO [Primary Care Provider] - - Diet and Activity Activity: as per physical therapy Diet: diabetic diet (pureed diet with honey thick liquids), low fat, low cholesterol, low salt diet Hospital course: Mr. Borrego is a 89 year old male with the above medical problems admitted with sudden onset of left-sided weakness and confusion. CT head showed right basal ganglia infarct, acute vs subacute. MRI brain showed right basal ganglia infarcts along with multiple other lacunar infarcts, suggestive of thromboembolic stroke. He was continued on statin and ASA and started on Plavix. Neurology was consulted and recommended stroke workup, which has been negative for source of emboli. However given the nature of stroke on imaging, anticoagulation is recommended and patient is started on Coumadin to maintain INR 1.5-2.5. PT evaluation was done and recommend placement in rehab, to which patient and family agreeable. Patient is medically stable. - Time Spent with Patient Total time spent providing and/or coordinating discharge services: Greater than 30 minutes (50 min) - Constitutional Vitals: Temp Pulse Resp BP Pulse Ox 97.5 F L 69 20 161/91 95 08/29/16 11:28 08/29/16 11:28 08/29/16 11:28 08/29/16 11:28 08/29/16 11:28 General appearance: Present: A&O X 2 - Respiratory Respiratory exam: Present: CTAB. Absent: accessory muscle use, rales, rhonchi, wheezes - Cardiovascular Cardiovascular exam: Present: RRR, +S1, +S2. Absent: diastolic murmur, gallop, rubs, systolic murmur - VTE Documentation of Mechanical Device: Intermittent pneumatic compression device
--- NOTE | 2016-08-29 14:18 | Physician Discharge Referral ---
ExtendedCare Referral Info Transfer To: [facility] Provider in Charge: Clarita Mark Provider in Charge after Transfer: PCP Institutional Level of Care: Skilled - Diagnosis (1) Acute kidney injury Priority: Primary Status: Acute (2) Pneumonia Priority: Primary Status: Acute (3) Acute CVA (cerebrovascular accident) Priority: Primary Status: Acute (4) CAD (coronary artery disease) Priority: Secondary Status: Chronic (5) Diabetes mellitus type 2, noninsulin dependent Priority: Secondary Status: Chronic (6) Essential hypertension Priority: Secondary Status: Chronic (7) Hyperlipidemia Priority: Secondary Status: Chronic (8) CHF (congestive heart failure) Priority: Secondary Status: Chronic Expected Duration of Placement: 3 weeks Prognosis: Fair Aware of Diagnosis: Patient, Family - Transfer Medications Prescriptions: Aspirin 81 mg PO DAILY #30 tab.chew Atorvastatin [Lipitor] 40 mg PO HS #30 tablet Lansoprazole [Prevacid] 15 mg PO DAILY@0630 #30 capsule. Levofloxacin [Levaquin] 500 mg PO DAILY #5 tablet Warfarin perPT [Coumadin perPT] 5 mg PO DAILY@1800 #10 each Home Medications: Atenolol [Tenormin] 25 mg PO DAILY 08/25/16 [History] Carvedilol [Coreg] 6.25 mg PO BIDWM 08/25/16 [History] Digoxin [Lanoxin] 0.125 mg PO DAILY 08/25/16 [History] GlipiZIDE [Glucotrol] 5 mg PO DAILY 08/25/16 [History] Metformin [Glucophage] 500 mg PO HS 08/25/16 [History] Aspirin 81 mg PO DAILY #30 tab.chew 08/29/16 [Rx] Atorvastatin [Lipitor] 40 mg PO HS #30 tablet 08/29/16 [Rx] Lansoprazole [Prevacid] 15 mg PO DAILY@0630 #30 capsule. 08/29/16 [Rx] Levofloxacin [Levaquin] 500 mg PO DAILY #5 tablet 08/29/16 [Rx] Warfarin perPT [Coumadin perPT] 5 mg PO DAILY@1800 #10 each 08/29/16 [Rx] Furosemide [Lasix] 20 mg PO DAILY #0 09/05/16 [Rx] Allergies/Adverse Reactions: Allergies Penicillins [PCN] Allergy (Verified 08/25/16 14:05) See Comments - Respiratory Orders Smoking Cessation: Smoking cessation has been advised. For more information, call the [place] Tobacco Quit Line at 8-745-UQHR-NOW. - Ancillary Orders May use pressure relief devices daily prn - Advance Directives Power of Cmv Driver: Yes (Son) Code Status: Full Code - Mobility Orders Ambulate - Rehabiliation Orders Rehab Potential: Fair Rehab Orders: ROM Exercises, Evaluation for Physical Therapy, Evaluation for Occupational Therapy, Evaluation for Speech Therapy - Diet Orders No Concentrated Sweets (diabetic), Pureed (honey thick liquids), Cardiac CERTIFICATION: I certify that the transfer of the above named patient to an Extended Care Facility is necessary for the continuing treatment of the diagnosis listed. The above information is true and accurate reflection of patient's current condition. Confidential - Redisclosure prohibited without a patient's written consent.
[2016-08-29] MEDS ORDERED: *HR* Warfarin 5 MG TABLET PO ONE (18:00)
[2016-08-30] MEDS ORDERED: Levofloxacin 500 MG/100 ML 500 MG/100 ML BAG IVPB SCH (09:00)
== END 2016-08-29 16:17 | DRG 40 ==
LOC: 2NENU 13:08 → EMEROO 13:08 → SUATTDRO 16:00 → 2NENU 17:40
PROVIDERS: ADMIT Internal Medicine; ATTEND Internal Medicine